=== PATIENT | female | born 1995 | race Caucasian/White ===

== ENCOUNTER → 2025-03-20 | Outpatient (CLI) | payer MEDICAID, SELFPAY ==
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
== END | disposition home or self-care (01) ==
PROVIDERS: Referring Provider Internal Medicine; Visit Provider Internal Medicine
DX: S70.11XA Contusion of right thigh, initial encounter (principal); S83.511A Sprain of anterior cruciate ligament of right knee, initial encounter; V89.2XXA Person injured in unspecified motor-vehicle accident, traffic, initial encounter
CPT/HCPCS: 73721